=== PATIENT | male | born 1945 | race Caucasian/White ===

== ENCOUNTER → 2023-06-13 07:10 | Day surgery (SDC) | payer MEDICARE, SELFPAY ==
[2023-06-13 07:49] VITALS: BMI 25.9
[2023-06-13] MEDS: ELIQUIS 5 MG PO (07:55)
== END ==
LOC: CATH 07:10
PROVIDERS: ATTENDING PHYSICIAN Internal Medicine Cardiovascular Disease; FAMILY PHYSICIAN Family Medicine; OTHER PHYSICIAN Internal Medicine Cardiovascular Disease
DX: I48.0 Paroxysmal atrial fibrillation (principal); I48.3 Typical atrial flutter; I34.0 Nonrheumatic mitral (valve) insufficiency; Z85.46 Personal history of malignant neoplasm of prostate; Z79.01 Long term (current) use of anticoagulants
CPT/HCPCS: 92960; 93005

== ENCOUNTER 2024-04-16 07:10 | Inpatient (IN) | payer MEDICARE, SELFPAY ==
[2024-04-01 10:49] LABS: Hematocrit 40.5 % (39.0-52.0); Hemoglobin 13.2 g/dL (13.0-18.0); Mean Corp Hgb Conc. 32.6 g/dL (33.0-37.0); Mean Corpuscular Hgb 31.7 pg (27.0-31.0); Mean Corpuscular Volume 97.4 fL (80.0-94.0); Platelet Count 254 10^3/uL (130-400); Red Blood Cell Count 4.16 10^6/uL (4.70-6.10); Red Cell Dist. Width 13.4 % (11.5-14.5); White Blood Cell Count 6.8 10^3/uL (4.8-10.8)
[2024-04-01 11:24] LABS: ALT (SGPT) 24 U/L (0-50); AST (SGOT) 38 U/L (17-59); Albumin 4.4 g/dl (3.5-5.0); Alkaline Phosphatase 119 U/L (38-126); Blood Urea Nitrogen 21 mg/dl (9-20); Carbon Dioxide 28 mmol/L (22-30); Chloride 101 mmol/L (98-107); Glucose 85 mg/dl (70-99); Potassium 4.7 mmol/L (3.5-5.1); Sodium 140 mmol/L (135-145); Total Bilirubin 0.9 mg/dl (0.2-1.3); Total Protein 7.4 g/dl (6.3-8.2); eGFR > 60.00
[2024-04-01 12:01] LABS: Glycohemoglobin (HgbA1c) 5.2 % (4.0-5.6)
[2024-04-01 14:38] VITALS: BMI 26.2
[2024-04-10 09:31] VITALS: BMI 26.2
[2024-04-16] VITALS (13 sets, daily range): BP systolic 107–191; BP diastolic 70–119; PULSE 100; O2SAT 99; BMI 26.2
[2024-04-16] MEDS: NORMOSOL-R/PLASMALYTE-A 1000 IV ×2 (07:24→10:21)
[2024-04-16] MEDS: CELEBREX 200 MG PO (07:31)
[2024-04-16] MEDS: TYLENOL 650 MG PO ×4 (07:31→20:39)
--- NOTE | 2024-04-16 11:03 | W.PN.UPDATE ---
Update Note
Progress Note Update
R knee OA s/p R TKA w/ Dr Hoff 04/16/24
- s/p L TKA, 2015, w/ Dr Hoff
DVT prophylaxis - Eliquis at modified dosing, b/l venous foot pumps
- Will resume home Eliquis dosing POD 3 if hemodynamically stable
HTN - + parameters - monitor BP
PAF/typical a flutter, s/p multiple CVs - monitor on tele
- Continue Toprol Xl
- Eliquis as stated above
Daily alcohol - 2 drinks/daily reported
- Watch for s/sx of potential withdrawal
- Will order thiamine, folic acid, gabapentin TID, Serax HS
HLD
Mild-mod valvular disease
Colon polyps
Prostate CA, 2005, s/p XRT
Skin CA, s/p excision
Lyme disease
HOPI
--- NOTE | 2024-04-16 12:00 | PTCARENOTE ---
pt admitted to 2S room 2108 from the PACU at 1120. pt arrived via bed, awake and alert. assessment and admission database completed as documented. telemetry placed and reading Atrial Fib 80's. pt endorses no pain. ice pack in place. tolerating
sips of ysabel rufina and water. pt oriented to room, bed controls, call rivas and plan of care with verbalized understanding. care ongoing.
[2024-04-16] MEDS: LIDOCAINE 4% PATCH 2 PATCH TOPICAL (12:24)
[2024-04-16] MEDS: VITAMIN B1 100 MG PO (12:25)
[2024-04-16] MEDS: FOLVITE 0.5 MG PO (12:25)
[2024-04-16] MEDS: TOPROL XL 100 MG PO ×2 (12:27→20:39)
[2024-04-16] MEDS: NEURONTIN 200 MG PO ×2 (16:25→21:48)
[2024-04-16] MEDS: ANCEF 5 IV (16:25)
[2024-04-16] MEDS: BACTROBAN 2% OINTMENT 1 APPLIC NASAL (20:38)
[2024-04-16] MEDS: DECADRON 4 MG PO (20:38)
[2024-04-16] MEDS: COLACE 100 MG PO (20:38)
[2024-04-16] MEDS: ELIQUIS 2.5 MG PO (20:39)
[2024-04-16] MEDS: ZESTRIL 40 MG PO (21:47)
[2024-04-16] MEDS: SERAX 10 MG PO (21:47)
[2024-04-16] MEDS: LIPITOR 20 MG PO (21:47)
[2024-04-17] VITALS (7 sets, daily range): BP systolic 143–161; BP diastolic 78–107; PULSE 72–87; O2SAT 11–98
[2024-04-17] MEDS: ANCEF 5 IV (00:51)
[2024-04-17] MEDS: TYLENOL PO (01:31)
[2024-04-17] MEDS: TYLENOL 650 MG PO ×2 (03:35→08:37)
[2024-04-17] MEDS: BACTROBAN 2% OINTMENT 1 APPLIC NASAL (08:35)
[2024-04-17] MEDS: LIDOCAINE 4% PATCH 2 PATCH TOPICAL (08:36)
[2024-04-17] MEDS: DECADRON 4 MG PO (08:36)
[2024-04-17] MEDS: FOLVITE 0.5 MG PO (08:37)
[2024-04-17] MEDS: NEURONTIN 200 MG PO (08:37)
[2024-04-17] MEDS: COLACE 100 MG PO (08:37)
[2024-04-17] MEDS: VITAMIN B1 100 MG PO (08:37)
[2024-04-17] MEDS: ELIQUIS 2.5 MG PO (08:37)
[2024-04-17] MEDS: TOPROL XL 100 MG PO (08:38)
--- NOTE | 2024-04-17 09:53 | W.PN.ORTHO ---
Today's Communication / Plan
-
Await PT recs. Did well w/ OT.
D/c later today if remaining clinically stable.
Assessment
.
Distal Motor Intact: Yes
Dressing:
Old, scant incisional drainage.
Assessment:
R knee OA s/p R TKA w/ Dr Hoff 04/16/24
- s/p L TKA, 2015, w/ Dr Hoff
DVT prophylaxis - Eliquis at modified dosing, b/l venous foot pumps
- Will resume home Eliquis dosing POD 3 if hemodynamically stable
HTN - + parameters - BPs overall stable
PAF/typical a flutter, s/p multiple CVs - maintaining rate-controlled a fib on tele
- Continue Toprol Xl
- Eliquis as stated above
Daily alcohol - 2 drinks/daily reported
- No s/sx of potential withdrawal
- Did order thiamine, folic acid, gabapentin TID, Serax HS while inpatient
HLD
Mild-mod valvular disease
Colon polyps
Prostate CA, 2005, s/p XRT
Skin CA, s/p excision
Lyme disease
[place]
Plan
.
Surgery / Date: R TKA w/ Dr Hoff 04/16/24
DVT Prophylaxis: Other (Eliquis )
Activity:
Out of bed.
PT/OT
Discharge Plan: Home w/ Outpatient PT
Subjective
.
.:
Patient resting comfortably in his chair.
R knee pain tolerable w/ minimal opioids prn.
Denies any new significant complaints.
Eager for potential d/c today.
Vital Signs and Labs
.
Vital Signs and Labs:
Lab Results
04/01/24 09:39
04/01/24 09:39
Temp Pulse Resp BP Pulse Ox
98.4 F 86 16 143/91 100
04/17/24 08:25 04/17/24 08:38 04/17/24 08:25 04/17/24 08:38 04/17/24 08:25
Non-invasive Hgb result: 10.8
Physical Exam
-
HEENT: No pallor, cyanosis, or jaundice. Throat clear.
NECK: Supple. No JVD.
RESPIRATORY: Lungs clear to auscultation.
CVS: S1, S2 normal. RRR.�
ABDOMEN: Soft, non-tender. No distension.
EXTREMITIES: Expected post-surgical R knee edema. Strength equal, no calf pain with palpation/dorsiflexion. Calves soft.
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 No focal deficits. 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
--- NOTE | 2024-04-17 10:03 | W.DS.TRANS ---
DC Summary - Legal Administrative Assistant
-
Discharge Instructions:
Sleep Apnea Risk Intermediate
Discharge Diagnosis/Procedures R knee OA s/p R TKA w/ Dr Hoff 04/16/24
Diet Other diet
Additional Diets Diabetic carb controlled x1 week for wound
healing/infection prevention
Activity As tolerated,With Walker
Driving Restrictions Not until seen by your Dr
Bathing Restrictions OK to Shower
Other Services PT
Wound Care Dressing to be removed 1 week post-surgery
Instructions:
Stand-Alone Forms: Total Hip/Knee Replacement D/C
Changes to Home Medications: Yes
Discharge Medications:
DC Medications w/original date entered in [facility]
apixaban 5 mg tablet (Eliquis) 5 mg PO BID 08/23/15
metoprolol succinate 50 mg tablet,extended release 24 hr (Toprol XL) 100 mg PO BID 01/30/19
atorvastatin 10 mg tablet 20 mg PO HS 10/27/21
peg 400-propylene glycol (PF) 0.4 %-0.3 % eye drops in a dropperette (Systane (PF)) 1 drp ophthalmic (eye) Q2H PRN dry eye 10/27/21
vit C 250 mg-vit E 90 mg-zinc 40 mg-copper 1 ar-uvrffc-qihhsl capsule (PreserVision AREDS-2) 1 tab PO BID 10/27/21
mupirocin 2 % topical ointment 1 applic topical BID 04/10/24
acetaminophen 500 mg tablet (Acetaminophen Extra Strength) 1,000 mg (2 x 500 mg) PO Q6H #60 tabs 04/17/24
apixaban 2.5 mg tablet (Eliquis) 2.5 mg PO BID #5 tabs 04/17/24
dexamethasone 4 mg tablet 4 mg PO Q12H Anti-inflammatory #7 tabs 04/17/24
docusate sodium 100 mg capsule 100 mg PO BID #30 caps 04/17/24
gabapentin 100 mg capsule 200 mg (2 x 100 mg) PO TID neuropathic pain #30 caps 02/06/25
lidocaine 4 % topical patch 2 patch topical DAILY #30 ea 04/17/24
lisinopril 40 mg tablet 40 mg PO HS #1 tab 04/17/24
ondansetron HCl 4 mg tablet 4 mg PO Q6H PRN nausea and vomiting #30 tabs 04/17/24
sennosides 8.6 mg tablet (Carol-nicole) 17.2 mg (2 x 8.6 mg) PO BID #30 tabs 04/17/24
tramadol 50 mg tablet 50 mg PO Q6H PRN moderate-severe pain #30 tabs 04/17/24
Home Medication Changes
acetaminophen 500 mg tablet (Acetaminophen Extra Strength) 1,000 mg (2 x 500 mg) PO Q6H #60 tabs 04/17/24
apixaban 2.5 mg tablet (Eliquis) 2.5 mg PO BID #5 tabs 04/17/24 - until 2/8 PM
dexamethasone 4 mg tablet 4 mg PO Q12H Anti-inflammatory #7 tabs 04/17/24
docusate sodium 100 mg capsule 100 mg PO BID #30 caps 04/17/24
gabapentin 100 mg capsule 200 mg (2 x 100 mg) PO TID neuropathic pain #30 caps 04/17/24
lidocaine 4 % topical patch 2 patch topical DAILY #30 ea 04/17/24
ondansetron HCl 4 mg tablet 4 mg PO Q6H PRN nausea and vomiting #30 tabs 04/17/24
sennosides 8.6 mg tablet (Carol-nicole) 17.2 mg (2 x 8.6 mg) PO BID #30 tabs 04/17/24
tramadol 50 mg tablet 50 mg PO Q6H PRN moderate-severe pain #30 tabs 04/17/24
Pending Results: No
--- NOTE | 2024-04-17 12:54 | CM ---
Alert awake oriented patient who lives with his Lizeth who lives in a 2 story home with 1 step to enter and 12 steps to bed and bathroom. He is independent in driving and in all activities of daily living [employer].He was offered VN he declined
need.today. He has set up out pt PT.
Pt [facility] hx / No SNF history
Pharmacy [facility]
PCP DR Roque
PLAN Home Declined VN
== END 2024-04-17 13:07 | disposition home or self-care (01) | DRG 470 ==
LOC: 2 SOUTH 07:10
PROVIDERS: ADMITTING PHYSICIAN Orthopaedic Surgery; FAMILY PHYSICIAN Family Medicine; REFERRING PHYSICIAN Internal Medicine Cardiovascular Disease
PROC: 0SRC0J9 Replacement of Right Knee Joint with Synthetic Substitute, Cemented, Open Approach (ICD-10-PCS; 2024-04-16)
DX: M17.11 Unilateral primary osteoarthritis, right knee (principal); I48.3 Typical atrial flutter; I10 Essential (primary) hypertension; I48.0 Paroxysmal atrial fibrillation; E78.2 Mixed hyperlipidemia; Z85.46 Personal history of malignant neoplasm of prostate; Z85.828 Personal history of other malignant neoplasm of skin; Z79.01 Long term (current) use of anticoagulants; Z79.899 Other long term (current) drug therapy; Z96.652 Presence of left artificial knee joint; Z88.5 Allergy status to narcotic agent
CPT/HCPCS: 36415; 73560; 80053; 83036; 85027; 87070; 97110; 97116; 97162; 97166; 97535; C1713; C1776

== ENCOUNTER → 2024-11-20 13:33 | Outpatient (REF) | payer MEDICARE, SELFPAY | LOC: HWRAD 13:33 | PROVIDERS: ATTENDING PHYSICIAN Physician Assistant | DX: M54.50 Low back pain, unspecified (principal) | CPT/HCPCS: 72110; 76770 ==

== ENCOUNTER → 2024-12-04 14:50 | Outpatient (REF) | payer MEDICARE, SELFPAY | LOC: HWRAD 14:50 | PROVIDERS: ATTENDING PHYSICIAN Specialist; FAMILY PHYSICIAN Family Medicine | DX: R10.9 Unspecified abdominal pain (principal); R31.9 Hematuria, unspecified | CPT/HCPCS: 74176 ==

== ENCOUNTER → 2025-01-04 10:43 | Outpatient (REF) | payer MEDICARE, SELFPAY | LOC: MRI 3T 10:43 | PROVIDERS: ATTENDING PHYSICIAN Family Medicine; FAMILY PHYSICIAN Nurse Practitioner | DX: R93.5 Abnormal findings on diagnostic imaging of other abdominal regions, including retroperitoneum (principal); K86.2 Cyst of pancreas | CPT/HCPCS: 74183; A9575 ==

== ENCOUNTER → 2025-01-05 12:04 | Outpatient (REF) | payer MEDICARE, SELFPAY ==
[2025-01-05 14:07] LABS: Hematocrit 31.2 % (39.0-52.0); Hemoglobin 10.0 g/dL (13.0-18.0); Mean Corp Hgb Conc. 32.1 g/dL (33.0-37.0); Mean Corpuscular Volume 85.2 fL (80.0-94.0); Platelet Count 286 10^3/uL (130-400); Red Cell Dist. Width 15.2 % (11.5-14.5)
== END ==
LOC: SDSPAT 12:04
PROVIDERS: ATTENDING PHYSICIAN Specialist; FAMILY PHYSICIAN Family Medicine
DX: Z01.818 Encounter for other preprocedural examination (principal)
CPT/HCPCS: 36415; 85027; 93005

== ENCOUNTER 2025-01-14 06:27 | Day surgery (SDC) | payer MEDICARE, SELFPAY ==
[2025-01-05 14:01] VITALS: BMI 27.5
[2025-01-14] VITALS (18 sets, daily range): BP systolic 158–206; BP diastolic 73–115; BMI 27.5
[2025-01-14] MEDS: CYSVIEW KIT 100 MG INTRAVES (11:39)
[2025-01-14] MEDS: NORMOSOL-R/PLASMALYTE-A 1000 IV (11:39)
[2025-01-14] MEDS: SYRINGE NON-PUMP 50 MG IRRIG ×2 (14:27→14:28)
[2025-01-14] MEDS: SYRINGE NON-PUMP 50 ML IRRIG ×2 (14:27→14:28)
[2025-01-14] MEDS: TYLENOL 1000 MG PO (14:45)
== END 2025-01-14 17:47 | disposition home or self-care (01) ==
LOC: SDS 06:27
PROVIDERS: ATTENDING PHYSICIAN Specialist; FAMILY PHYSICIAN Family Medicine
DX: N32.9 Bladder disorder, unspecified (principal); Z92.3 Personal history of irradiation
CPT/HCPCS: 52224; C9738; 88307; 88341; 88342; A9589; J9201